=== PATIENT | female | born 1975 | race Caucasian/White ===

== ENCOUNTER 2025-06-14 10:13 | Day surgery (SDC) | payer BC ==
[2025-06-13 08:50] VITALS: BMI 25.8
[2025-06-14] MEDS ORDERED: Ondansetron PF 4 MG/2 ML Vial ONE (11:57)
[2025-06-14] MEDS ORDERED: PROPOFOL 20 ML ONE (11:57)
[2025-06-14] MEDS ORDERED: CEFAZOLIN 2 GM VIAL ONE (12:00)
== END 2025-06-14 14:47 | disposition home or self-care (01) ==
LOC: CSHSDC 10:13
PROVIDERS: ATTEND Podiatrist Foot & Ankle Surgery
DX: M20.22 Hallux rigidus, left foot (principal)
CPT/HCPCS: J0665; J1100; J2250; J2405; J2704; J3010